=== PATIENT | female | born 1980 | race Caucasian/White ===

== ENCOUNTER → 2017-01-10 | Outpatient (CLI) | payer BC ==
--- NOTE | 2017-01-10 08:48 | REP ---
TRANSVAGINAL PELVIC ULTRASOUND FOLLICLE STUDY: Real-time sonographic evaluation of the pelvis is performed utilizing transvaginal technique. The uterus measures 7.4 x 3.9 x 4.5 cm. Endometrial thickness is 3 mm. A very small amount of free fluid is seen in the cul-de-sac. Right ovary measures 2.3 x 2.1 x 2.0 cm. Largest follicle measures 10 x 8 mm. About eight other follicles range in size between 2 and 9 mm. The left ovary measures 3.3 x 1.1 x 2.3 cm. Six other follicles range in size between 2 and 8 mm. Signed by Jet Stroud MD 01/10/2017 05:06 P
[2017-01-10 10:07] LABS: ESTRADIOL 32.4 PG/ML; LUTEINIZING HORMONE 10.6 mIU/mL; PROGESTERONE 0.2 NG/ML
== END ==
LOC: M RAD 07:09
PROVIDERS: ATTEND Obstetrics & Gynecology Reproductive Endocrinology
DX: N97.9 Female infertility, unspecified (principal)

== ENCOUNTER → 2017-01-12 | Outpatient (CLI) | payer BC ==
--- NOTE | 2017-01-12 09:00 | REP ---
TRANSVAGINAL PELVIC ULTRASOUND, FOLLICLE STUDY: Transvaginal pelvic ultrasound performed. Uterus measures 7.2 x 3.5 x 4.3 cm. Endometrial stripe is 5 mm. Mild scattered free fluid is seen in the pelvis. Right ovary measures 3.8 x 2.5 x 3.3 cm. There are four dominant follicles greater than 1 cm in diameter with the largest measuring 16 x 13 and 18 x 14 mm. About six other subcentimeter follicles are seen. Left ovary measures 3.5 x 1.8 x 1.9 cm. About eight subcentimeter follicles are seen. Signed by Jet Stroud MD 01/12/2017 05:35 P
[2017-01-12 09:34] LABS: PROGESTERONE 0.3 NG/ML
[2017-01-12 09:35] LABS: ESTRADIOL 151.6 PG/ML; LUTEINIZING HORMONE 3.2 mIU/mL
== END ==
LOC: M RAD 07:25 → M LAB 07:25
PROVIDERS: ATTEND Obstetrics & Gynecology Reproductive Endocrinology
DX: N97.9 Female infertility, unspecified (principal)